=== PATIENT | female | born 1965 | race Caucasian/White ===

== ENCOUNTER 2018-09-05 11:17 | Emergency (ER) | payer OTHER ==
[~2018-09-05] VITALS: Ht 157.5 cm; Wt 77.1 kg
[~2018-09-05 11:17] MED LIST: ACYCLOVIR 200200 MG PO; ANTIVERT25 MG PO; BACTRIM DS TAB1 EACH PO; CRESTOR10 MG PO; FLEXERIL PO; HYDROCODON-ACE1 EAC7 PO; NORVASC10 MG; VALACYCLOVIR1000 MG PO; VICODIN 5-5001 EACH PO
[2018-09-05 11:24] VITALS: BP 148/88
[2018-09-05] MEDS ORDERED: METFORMIN HCL500 MG PO (11:25)
== END 2018-09-05 11:55 | disposition home or self-care (01) ==
LOC: M.ERS 11:17
DX: L72.3 Sebaceous cyst (principal); I10 Essential (primary) hypertension; E78.00 Pure hypercholesterolemia, unspecified; Z90.711 Acquired absence of uterus with remaining cervical stump

== ENCOUNTER 2020-05-21 23:52 | Emergency (ER) | payer OTHER ==
[~2020-05-21] VITALS: Ht 157.5 cm; Wt 77.1 kg
[~2020-05-21 23:52] MED LIST changes: +METFORMIN HCL500 MG PO
[2020-05-22] MEDS ORDERED: NORCO 5-325 TA1 EAC2 PO (00:19)
[2020-05-22 00:40] VITALS: BP 149/93
== END 2020-05-22 00:40 | disposition home or self-care (01) ==
LOC: M.ERS 23:52
DX: S50.01XA Contusion of right elbow, initial encounter (principal); I10 Essential (primary) hypertension; E78.00 Pure hypercholesterolemia, unspecified; Z90.711 Acquired absence of uterus with remaining cervical stump; Z98.51 Tubal ligation status; W22.8XXA Striking against or struck by other objects, initial encounter; Y93.89 Activity, other specified; Y92.89 Other specified places as the place of occurrence of the external cause; Y99.0 Civilian activity done for income or pay

== ENCOUNTER 2020-07-29 18:04 | Emergency (ER) | payer OTHER ==
[~2020-07-29] VITALS: Ht 154.9 cm; Wt 80.3 kg
[~2020-07-29 18:04] MED LIST changes: +NORCO 5-325 TA1 EAC2 PO
[2020-07-29] MEDS ORDERED: BACTRIM DS TAB1 EAC1 PO (19:39)
[2020-07-29] MEDS ORDERED: KEFLEX500 M1 PO (19:39)
[2020-07-29 20:50] VITALS: BP 143/87
== END 2020-07-29 20:35 | disposition home or self-care (01) ==
LOC: M.ERS 18:04
DX: L03.116 Cellulitis of left lower limb (principal); I10 Essential (primary) hypertension; E78.00 Pure hypercholesterolemia, unspecified; Z98.51 Tubal ligation status; Z90.711 Acquired absence of uterus with remaining cervical stump

== ENCOUNTER 2020-08-09 12:51 | Emergency (ER) | payer OTHER ==
[~2020-08-09] VITALS: Ht 157.5 cm; Wt 78.5 kg
[~2020-08-09 12:51] MED LIST changes: +BACTRIM DS TAB1 EAC1 PO; +KEFLEX500 M1 PO
[2020-08-09 13:53] VITALS: BP 142/96
== END 2020-08-09 13:54 | disposition left against medical advice (07) ==
LOC: M.ERS 12:51
DX: Z53.21 Procedure and treatment not carried out due to patient leaving prior to being seen by health care provider (principal)

== ENCOUNTER 2020-09-08 10:31 | Emergency (ER) | payer OTHER ==
[~2020-09-08] VITALS: Ht 157.5 cm; Wt 81.7 kg
[2020-09-08] MEDS ORDERED: TRANSDERM-SCOP1 EACH TRANSDERM (13:22)
[2020-09-08] MEDS ORDERED: WAL-DRAM 225 MG PO (13:22)
[2020-09-08] MEDS ORDERED: NORCO 10-325 T1 EACH PO (13:31)
[2020-09-08 13:50] VITALS: BP 143/92
== END 2020-09-08 13:50 | disposition home or self-care (01) ==
LOC: M.ERS 10:31
DX: M53.3 Sacrococcygeal disorders, not elsewhere classified (principal); R42 Dizziness and giddiness; M25.551 Pain in right hip; I10 Essential (primary) hypertension; E78.00 Pure hypercholesterolemia, unspecified; Z90.711 Acquired absence of uterus with remaining cervical stump; Z98.51 Tubal ligation status; W18.39XA Other fall on same level, initial encounter; Y93.89 Activity, other specified; Y92.89 Other specified places as the place of occurrence of the external cause; Y99.8 Other external cause status